=== PATIENT | female | born 1980 | race Caucasian/White ===

== ENCOUNTER → 2017-07-08 | Outpatient (CLI) | payer OTHER ==
--- NOTE | 2017-07-08 13:00 | KCIC ---
MRI Lumbar Spine without contrast History: Low back pain, right leg pain for a couple of months Technique: Multiplanar, multi sequential noncontrast MR imaging was performed of the lumbar spine. Contrast: None Comparison: None Findings: Lumbar vertebral body stature and AP alignment are preserved. Conus terminates at L1. There is mild degenerative disc disease L1-2, mild disc desiccation L4-5. There is no significant marrow edema. L1-L2: There is minimal disc osteophyte complex and bulge. Spinal canal and neural foramina are adequate. L2-L3: Neural foramina and spinal canal are adequate. There is mild buckling of the ligamentum flavum and facet degenerative change. L3-L4: There is mild facet hypertrophic change and buckling of the ligamentum flavum. Neural foramina and spinal canal are adequate. L4-L5: There is moderate buckling of the ligamentum flavum and facet hypertrophic change. There is minimal left posterior bulge. There is moderate left and [id number] right lateral recess stenosis. There is minimal narrowing of the left neural foramen, right neural foramen adequate. L5-S1: Spinal canal and neural foramina are adequate. There is mild facet hypertrophic change on the right. Impression: 1. There is mild/moderate left greater than right lateral recess stenosis L4-5. There is minimal narrowing of the left L4-5 neural foramen. 2. There is multilevel lumbar facet degenerative change. 3. There is minimal degenerative disc disease and spondylosis at L1-2, to lesser degree at L4-5. Electronically signed by: Darnell Patricia MD (07/08/2017 12:56 PM) [id number]
== END | disposition home or self-care (01) ==
LOC: KCIC MRI 11:52
PROVIDERS: ATTEND Physician Assistant
DX: M48.06 Spinal stenosis, lumbar region (principal); M51.36 Other intervertebral disc degeneration, lumbar region; M47.896 Other spondylosis, lumbar region; M79.604 Pain in right leg
CPT/HCPCS: 72148